=== PATIENT | male | born 1945 | race Caucasian/White ===

== ENCOUNTER 2018-07-14 11:21 | Outpatient (CLI) | payer MEDICARE | END 2018-07-14 11:22 | disposition home or self-care (01) | LOC: SC 11:21 | PROVIDERS: ATTEND Internal Medicine Pulmonary Disease | DX: G47.10 Hypersomnia, unspecified (principal); G47.8 Other sleep disorders; R06.83 Snoring; R09.89 Other specified symptoms and signs involving the circulatory and respiratory systems | CPT/HCPCS: 99203; G0463; 99212 ==

== ENCOUNTER 2018-08-08 20:32 | Outpatient (CLI) | payer MEDICARE | END 2018-08-08 20:33 | disposition home or self-care (01) | LOC: SC 20:32 | PROVIDERS: ATTEND Internal Medicine Pulmonary Disease | DX: G47.33 Obstructive sleep apnea (adult) (pediatric) (principal); G47.61 Periodic limb movement disorder | CPT/HCPCS: 95810 ==

== ENCOUNTER 2018-08-31 14:43 | Outpatient (CLI) | payer MEDICARE | END 2018-08-31 14:44 | disposition home or self-care (01) | LOC: SC 14:43 | PROVIDERS: ATTEND Nurse Practitioner Family | DX: G47.33 Obstructive sleep apnea (adult) (pediatric) (principal); G47.61 Periodic limb movement disorder | CPT/HCPCS: 99214; G0463; 99212 ==

== ENCOUNTER 2018-11-10 10:26 | Outpatient (CLI) | payer MEDICARE ==
[2018-11-10 11:10] VITALS: BP 128/70
--- NOTE | 2018-11-10 11:10 | SLEEP CARE CONSULTATION ---
Information from patient questionnaire entered by Teri Shore. I have reviewed and concur with the information entered by Teri Shore. This document represents the service I personally performed and the decisions made by me, Bea Gamboa, RN, MSN, DUMP ATTENDANT. History of Present Illness Previous diagnosis: Severe, Obstructive Sleep Apnea-Hypopnea Syndrome AHI: 47.9 Reason for CPAP/BiPAP follow up: first compliance Equipment type: CPAP Equipment obtained from: [facility] Mask style: Nasal pillows (Dreamwear) Mask brand: [employer] Backup mask available: No (Keep current mask when replaced as a spare) Last cushion change: none since set up CPAP Compliance Data - Data Reviewed with Patient Average duration of nightly device use: 7.95 Compliance rate %: 100 Current pressure setting (cmH2O): 4-15 Humidity setting: auto Heated hose setting: unknown Average residual AHI: 3.4 Average large leak: 0.1liter per minute Subjective Patient concerns: denies: aerophagia, mask discomfort (resolved with loosening of headgear), air blowing in eyes, mask leak noise, condensation in mask/hose, nasal congestion, dry mouth, nose, throat, epistaxis Observed to snore while using device: No (single and sleeps alone) Current pressure setting perceived as: comfortable On therapy, patient: reports: other (no change but only tired occasionally before CPAP. ). denies: sleeping better, awakening more refreshed, being more awake and alert during the day, more rested overall, drowsiness while driving Initial [place] Sleepiness Scale score: 6 Current [place] Sleepiness Scale score: 5 Allergies and Home Medications Known drug allergies: Yes (Penicillin) Home medication list reviewed: Yes Allergy and home medication list: Medication Name (generic/name brand) Strength & Dosage Fosinopril 40mg tab one twice daily Amlodipine Besylate 2.5mg tab one daily Hydrochlorothiazide 25mg tab one daily Paroxetine 40mg tab daily Aspirin 81mg tab one daily Allergy List Penicillin Physical Exam Blood Pressure: 128/70 Cuff size: regular Heart Rate: 68 O2 Saturation: 96 Height: 5 ft 8.5 in Weight (kg): 182 lb 12.8 oz Body Mass Index: 27.3 BMI Classification: Overweight Impression and Plan 1. Obstructive Sleep Apnea-Hypopnea Syndrome, severe, with good treatment compliance and good apnea control. On CPAP therapy, he has noted no change but was only occasionally tired without CPAP. Since his 95th percentile pressure is 8.2cmH20, I will adjust his CPAP pressure to 8cmH20. He is advised to contact me if pressure change uncomfortable. Since his apnea is more severe in supine position, he is advised to avoid supine sleep with pillow positioning if unable to use CPAP due to lack of electricity or illness. Due to change in weather, I showed him how to adjust his humidity and heated hose to comfort with rationale why to change. I also advised to change his mask cushion regularly for comfort and seal as well as filter. He is to contact [facility] and check on their supply reminder system. Patient's apnea severity and rationale for treatment to reduce apnea, improve sleep quality and reduce cardiovascular and cerebrovascular events was reviewed. I also reviewed the benefit of consistent device use of CPAP for hypertension and anxiety. He monitors regularly and was advised to notify PCP if blood pressure range starts measuring around 100 or lower or if symptomatic so medications can be modified. * * Change CPAP pressure to 8 cmH2O * Update supplies * Notify me if snoring with mask or feeling that the pressure is too much or too little * Attempt to lose weight - belly weight is emphasized * Return for follow up in 3 months, or sooner if concerns arise I spent 100% of this 30 minute visit face to face with the patient with greater than 50% of this was spent time counseling the patient and coordination of care.
== END 2018-11-10 10:27 | disposition home or self-care (01) ==
LOC: SC 10:26
PROVIDERS: ATTEND Nurse Practitioner Family
DX: G47.33 Obstructive sleep apnea (adult) (pediatric) (principal)
CPT/HCPCS: 99214; G0463; 99212

== ENCOUNTER 2019-04-12 08:33 | Outpatient (CLI) | payer MEDICARE ==
[2019-04-12 16:36] VITALS: BP 142/66
--- NOTE | 2019-04-12 16:36 | SLEEP CARE CONSULTATION ---
Information from patient questionnaire entered by Manju Schroeder. I have reviewed and concur with the information entered by Manju Schroeder. This document represents the service I personally performed and the decisions made by me, Bea Gamboa, RN, MSN, OVEN UNLOADER. History of Present Illness Previous diagnosis: Severe, Obstructive Sleep Apnea-Hypopnea Syndrome AHI: 47.9 Reason for follow up: three month Equipment type: CPAP Equipment obtained from: [facility] Mask style: Nasal pillows Backup mask available: No (keep current mask as spare when replaced) Last cushion change: none since set up Prior sleep studies: Yes HPI additional information: The pressure change to 8cmH20 worked well. CPAP Compliance Data - Data Reviewed with Patient Average duration of nightly device use: 7h 29m Compliance rate %: 99 Current pressure setting (cmH2O): 8 Average residual AHI: 1.9 Subjective Patient concerns: denies: aerophagia, mask discomfort, air blowing in eyes, mask leak noise, condensation in mask/hose, nasal congestion, dry mouth, nose, throat, epistaxis Observed to snore while using device: No (sleeps alone) Current pressure setting perceived as: comfortable On therapy, patient: reports: sleeping better, awakening more refreshed, being m ore awake and alert during the day, more rested overall. denies: drowsiness while driving Initial [place] Sleepiness Scale score: 6 Current [place] Sleepiness Scale score: 3 Allergies and Home Medications Known drug allergies: Yes (penicillin ) Home medication list reviewed: Yes Allergy and home medication list: Medication Name (generic/name brand) Strength & Dosage Fosinopril 40mg tab one twice daily Amlodipine Besylate 2.5mg tab one daily Hydrochlorothiazide 25mg tab one daily Paroxetine 40mg tab daily Aspirin 81mg tab one daily Allergy List Penicillin Review of Systems Review of systems same as previous: Yes Physical Exam Blood Pressure: 142/66 Cuff size: long Heart Rate: 72 O2 Saturation: 96 Height: 5 ft 8 in Weight: 184 lb 6.4 oz Body Mass Index: 28.0 BMI Classification: Overweight Impression and Plan 1. Obstructive Sleep Apnea-Hypopnea Syndrome, severe, with good treatment compliance and good apnea control. On CPAP therapy, the patient has better sleep quality and is more rested overall. Questions about supplies and replacement were answered. In addition, I gave patient a copy of the CPAP supply replacement schedule and discussed rationale for updating equipment. Patient's apnea severity and rationale for treatment to reduce apnea, improve sleep quality and reduce cardiovascular and cerebrovascular events was reviewed. I also reviewed the benefit of consistent device use of CPAP for hypertension, depression/anxiety. He is not planning on losing weight but would like to lose some. I explained how significant weight loss can reduce his CPAP pressure requirements and symptoms to report for adjusting his CPAP pressure. Since patient has more severe apnea in supine position, patient advised to avoid supine sleep with pillow positioning if unable to use CPAP while ill or if without electricity to reduce apnea risk. * Continue CPAP pressure at 8 cmH2O * Notify me if snoring with mask or feeling that the pressure is too much or too little * Attempt to lose weight * Call this office if any problems using CPAP * Return for follow up in 1year , or sooner if concerns arise 5 Time Spent with Patient (minutes): 15 I spent 100% of this visit face to face with the patient with greater than 50% of this was spent time counseling the patient and coordination of care.
== END 2019-04-12 08:34 | disposition home or self-care (01) ==
LOC: SC 08:33
PROVIDERS: ATTEND Nurse Practitioner Family
DX: G47.33 Obstructive sleep apnea (adult) (pediatric) (principal); E66.3 Overweight; Z68.28 Body mass index [BMI] 28.0-28.9, adult
CPT/HCPCS: 99213; G0463; 99212

== ENCOUNTER 2020-09-05 13:08 | Outpatient (CLI) | payer MEDICARE ==
--- NOTE | 2020-09-05 13:44 | SLEEP CARE CONSULTATION ---
Information from patient questionnaire entered by Teri Shore. I have reviewed and concur with the information entered by Teri Shore. This document represents the service I personally performed and the decisions made by , Trinity Ramey ARNP. History of Present Illness Service Date and Time: 09/05/2020 1308 Previous diagnosis: Severe, Obstructive Sleep Apnea-Hypopnea Syndrome AHI: 47.9 (in 2019) Reason for follow up: annual (last seen 03/2019) Equipment type: CPAP Equipment obtained from: [employer] (getting supplies as needed) Mask style: Nasal pillows Mask brand: [employer] Backup mask available: Yes (old mask) Last cushion change: 8-9 months Prior sleep studies: Yes Year and Where: 2019 - [facility] Type of Sleep Study: Polysomnography HPI additional information: VALENTE BENITES was diagnosed to have severe, AHI 47.9, obstructive sleep apnea- hypopnea syndrome and returned today for CPAP therapy annual follow-up. CPAP Compliance Data - Data Reviewed with Patient Average duration of nightly device use: 7 hr 33 min Compliance rate %: 99 (180 days) Current pressure setting (cmH2O): 8 Humidity settin Average residual AHI: 1.2 Subjective Patient concerns: denies: aerophagia, mask discomfort, air blowing in eyes, mask leak noise, condensation in mask/hose, nasal congestion, dry mouth, nose, throat, epistaxis, other Observed to snore while using device: No Current pressure setting perceived as: comfortable On therapy, patient: reports: sleeping better, awakening more refreshed, being more awake and alert during the day, more rested overall. denies: drowsiness while driving Initial [place] Sleepiness Scale score: 6 (in 2019) Current [place] Sleepiness Scale score: 4 Allergies and Home Medications Home medication list reviewed: Yes (no new meds) Review of Systems Review of systems same as previous: Yes (no changes) Physical Exam Heart Rate: 65 O2 Saturation: 98 Height: 5 ft 8 in Weight: 175 lb Weight change since last visit: 9 lb loss Body Mass Index: 26.6 BMI Classification: Overweight Impression and Plan 1. Obstructive Sleep Apnea-Hypopnea Syndrome, severe, with excellent treatment compliance and good apnea control. On CPAP therapy, the patient has better sleep quality and is more rested overall. Patient is satisfied with current treatment. Patient states he has lost about 13 pounds according to his scale. Patient has lost weight. Currently patients BMI is 26.6. He has been counting calories to be able to lose weight. Obesity increases the risk of apnea, CPAP pressure requirements and overall health risks especially cardiovascular and diabetes. Thus patient is advised to continue to lose weight. Weight loss can be done with reducing portion size, reducing refined foods and balancing content with vegetables, fruit and whole grain foods. Patient's apnea severity and rationale for treatment to reduce apnea, improve sleep quality and reduce cardiovascular and cerebrovascular events was reviewed. I also reviewed the benefit of consistent device use of CPAP for hypertension anddepression/anxiety. * Continue CPAP pressure at 8 cmH2O * Notify me if snoring with mask or feeling that the pressure is too much or too little * Continue to try to lose weight * Call this office if any problems using CPAP * Return for follow up in 1 year, or sooner if concerns arise Counseling Topics: Spare mask, Weight loss health impact Visit Type: In Office Time Spent with Patient (minutes): 10 Provider Statement: I spent 100% of the Face to Face Visit with the patient with greater than 50% spent counseling the patient and coordination of care.
== END 2020-09-05 13:09 | disposition home or self-care (01) ==
LOC: SC 13:08
PROVIDERS: ATTEND Nurse Practitioner Family
DX: G47.33 Obstructive sleep apnea (adult) (pediatric) (principal)
CPT/HCPCS: 99212; G0463

== ENCOUNTER 2021-01-24 08:00 | Outpatient (CLI) | payer MEDICARE ==
--- NOTE | 2021-01-25 09:12 | XRAY Report ---
PROCEDURE: Finger(s) LT INDICATIONS: CRUSHING INJURY TO LEFT RING FINGER TECHNIQUE: AP hand, 3 views of the left finger(s) acquired. COMPARISON: None. FINDINGS: Fracture of the distal tuft of the ring finger. Scattered subchondral sclerosis and spurring. Associa deisi soft tissue swelling. IMPRESSION: Ring finger distal tuft fracture. Reviewed by: Jeet Galvez MD on 01/25/2021 9:11 AM PST Approved by: Jeet Galvez MD on 01/25/2021 9:11 AM [facility] Station ID: [id number]
== END 2021-01-24 23:59 | disposition home or self-care (01) ==
LOC: DI.S 08:00
PROVIDERS: ATTEND Physician Assistant
DX: S67.195A Crushing injury of left ring finger, initial encounter (principal); S62.635A Displaced fracture of distal phalanx of left ring finger, initial encounter for closed fracture

== ENCOUNTER 2021-07-02 08:00 | Outpatient (CLI) | payer MEDICARE ==
[2021-07-02 15:56] LABS: BASOPHILS # (AUTO) 0.1 10^3/uL (0.0-0.1); BASOPHILS % (AUTO) 1.2 %; EOSINOPHILS # (AUTO) 0.3 10^3/uL (0.0-0.7); EOSINOPHILS % (AUTO) 5.3 %; HCT - HEMATOCRIT 43.4 % (42.0-52.0); HGB - HEMOGLOBIN 14.2 g/dL (14.0-18.0); LYMPHOCYTES # (AUTO) 1.4 10^3/uL (1.5-3.5); LYMPHOCYTES % (AUTO) 24.7 %; MEAN CORPUSCULAR HEMOGLOBIN 30.7 pg (27.0-31.0); MEAN CORPUSCULAR HGB CONC 32.7 g/dL (32.0-36.0); MEAN CORPUSCULAR VOLUME 93.7 fL (80.0-94.0); MEAN PLATELET VOLUME 11.5 fL (7.4-11.4); MONOCYTES # (AUTO) 0.6 10^3/uL (0.0-1.0); MONOCYTES % (AUTO) 9.8 %; NEUTROPHILS # (AUTO) 3.3 10^3/uL (1.5-6.6); NEUTROPHILS % (AUTO) 58.6 %; PLT - PLATELET COUNT 215 10^3/uL (130-450); RED BLOOD COUNT 4.63 10^6/uL (4.70-6.10); RED CELL DISTRIBUTION WIDTH 13.5 % (12.0-15.0); WHITE BLOOD COUNT 5.6 x10^3/uL (4.8-10.8)
[2021-07-02 16:13] LABS: ALBUMIN 4.5 g/dL (3.2-5.5); ALBUMIN/GLOBULIN RATIO 1.7 (1.0-2.2); ALKALINE PHOSPHATASE 68 IU/L (42-121); ALT ALANINE AMINOTRANSFERASE 27 IU/L (10-60); AST ASPARTATE AMINOTRANSFERASE 20 IU/L (10-42); BILIRUBIN,TOTAL 0.4 mg/dL (0.2-1.0); BUN - BLOOD UREA NITROGEN 20 mg/dL (6-20); CALCIUM 8.9 mg/dL (8.5-10.3); CARBON DIOXIDE - CO2 25 mmol/L (21-32); CHLORIDE 103 mmol/L (101-111); CHOLESTEROL 185 mg/dL; CREATININE 0.9 mg/dL (0.6-1.2); GFR - MDRD 83 (>89); GLUCOSE 90 mg/dL (70-100); HDL CHOLESTEROL 62 mg/dL; LDL CHOLESTEROL,CALCULATED 103 mg/dL; LDL/HDL RATIO 1.7 (<3.6); POTASSIUM 3.7 mmol/L (3.5-5.0); SODIUM 137 mmol/L (135-145); TOTAL PROTEIN 7.1 g/dL (6.7-8.2); TRIGLYCERIDES 102 mg/dL; VLDL CHOLESTEROL 20 mg/dL
[2021-07-02 16:28] LABS: PSA TOTAL 2.82 ng/mL (0.000-2.000)
[2021-07-02 16:38] LABS: THYROID STIMULATING HORMONE 4.33 uIU/mL (0.34-5.60)
[2021-07-02 16:40] LABS: FREE T4 (FREE THYROXINE) 0.74 ng/dL (0.58-1.64)
[2021-07-02 17:15] LABS: PSA FREE 0.657 ng/mL (0.16-2.81)
[2021-07-02 20:07] LABS: ESTIMATED AVERAGE GLUCOSE 114 mg/dL (70-100); HEMOGLOBIN A1c% 5.6 % (4.27-6.07)
== END 2021-07-02 23:59 | disposition home or self-care (01) ==
LOC: LAB.R 08:00
PROVIDERS: ATTEND Internal Medicine
DX: Z00.00 Encounter for general adult medical examination without abnormal findings (principal); D64.9 Anemia, unspecified; F41.9 Anxiety disorder, unspecified; R97.20 Elevated prostate specific antigen [PSA]; R73.9 Hyperglycemia, unspecified; E78.5 Hyperlipidemia, unspecified; I10 Essential (primary) hypertension; N20.0 Calculus of kidney; Z13.6 Encounter for screening for cardiovascular disorders; E02 Subclinical iodine-deficiency hypothyroidism; Z79.899 Other long term (current) drug therapy
CPT/HCPCS: 80053; 80061; 83036; 83721; 84153; 84154; 84439; 84443; 85025